=== PATIENT | female | born 1945 | race Caucasian/White ===

== ENCOUNTER 2018-01-29 20:10 | Emergency (ER) | payer MEDICARE, BC, SELFPAY ==
[2018-01-29 20:14] VITALS: BP 135/79; PULSE 78; RESP 18; TEMP 36.1; O2SAT 100; BMI 18.3
[2018-01-29] MEDS: PHENAZOPYRIDINE 100 MG TABLET 200 MG PO (20:31)
[2018-01-29 21:57] LABS: Bacteria Urine Few (2-10); RBC Urine 1-5/HPF (0-5/HPF); WBC Urine 30-100/HPF (0-5/HPF)
[2018-01-29 21:58] LABS: Culture Indicated Urine Specimen Cultured
[2018-01-29 23:18] VITALS: BP 102/53; PULSE 67; RESP 14; O2SAT 97
[2018-01-30] MEDS: cephALEXin 250 MG PREPACK 1 BOTTLE MISC (00:25)
[2018-01-30 00:27] VITALS: BP 115/63; PULSE 69; RESP 18; TEMP 36.9; O2SAT 99
--- NOTE | 2018-01-30 06:42 | ED_ITS ---
HPI - Female Genitourinary General Chief complaint: Urogenital-Female Stated complaint: BLEEDING,THINKS UTI Time Seen by Provider: 01/29/18 22:30 Source: patient Mode of arrival: ambulatory Limitations: no limitations History of Present Illness HPI Narrative: 73-year-old female with history of UTI presents with her in the chief complaint of dysuria, frequency and urgency along with hematuria over the past few days. She does have minimal back pain but denies any fever, chills nor nausea or vomiting. MD Complaint: dysuria and UTI Onset (ago): day(s) Female Urogenital Radiation: Suprapubic Severity: mild Quality: Aching Duration: constant Relieving factors: none Exacerbating factors: none Urinary symptoms: Difficulty Urinating, Dysuria, Flank Pain, Foul Smelling Urine , Frequency, Hematuria and Urgency Related Data Previous Rx's Medication Instructions Recorded cephalexin [Keflex] 500 mg PO QID 10 Days #40 cap 01/30/18 Allergies Allergy/AdvReac Type Severity Reaction Status Date / Time Iodinated Contrast- Oral and Allergy Intermediate Verified 01/29/18 20:26 IV Dye Review of Systems Review of Systems All systems reviewed & are unremarkable except as noted in HPI and below Constitutional Denies chills, Denies fever(s), Denies lethargy and Denies weakness Eyes Denies change in vision, Denies eye discharge, Denies irritation and Denies loss of vision ENT Ears, Nose, Mouth, and Throat: Denies change in voice, Denies neck pain and Denies sore throat Cardiovascular Denies chest pain, Denies irregular heart rhythm, Denies lightheadedness, Denies palpitations, Denies dyspnea, Denies dyspnea on exertion and Denies orthopnea Respiratory Denies cough, Denies dyspnea, Denies dyspnea on exertion and Denies wheezing Gastrointestinal Gastrointestinal: Denies abdominal pain, Denies change in bowel habits, Denies diarrhea, Denies nausea and Denies vomiting Genitourinary Reports hematuria, Reports urinary frequency, Denies flank pain, Denies urinary incontinence and Reports urinary urgency Musculoskeletal Reports back pain and Denies neck pain Integumentary/Breasts Denies pruritus, Denies erythema, Denies rash and Denies wounds Neurologic Denies confusion, Denies loss of vision and Denies weakness Psychiatric Denies anxiety, Denies confusion, Denies depression, Denies homicidal ideation and Denies suicidal ideation Endocrine Denies palpitations Hematologic/Lymphatic Denies easy bruising Allergic/Immunologic Denies wheezing PFSH Social History Smoking Status: Current every day smoker Exam Narrative Exam Narrative: GEN: AOx3 and in mild distress EYES: Pupils are equal, round, and reactive to light and accommodation. Extraoccular muscles are intact bilaterally. There is no subconjunctival hemorrhage or exudate. CHEST: Lungs are clear to auscultation bilaterally and free of wheezes, rales, or rhonchi. Heart rate is regular rhythm, there are no murmurs, clicks, rubs, or gallops. There is no chest wall tenderness. ABD: Abdomen is soft and mildly tender in the suprapubic region. There is no guarding or rebound. Bowel sounds are normal in all 4 quadrants. There is no mass or organomegaly. EXT: Full painless ROM of all extremities with no loss of sensation or strength. SKIN: Warm, pink, and dry. No erythema or rash BACK: Mild tenderness to palpation over the left flank Initial Vital Signs Initial Vital Signs: Vital Signs Temperature 97.0 F L 01/29/18 20:14 Pulse Rate 78 01/29/18 20:14 Respiratory Rate 18 01/29/18 20:14 Blood Pressure 135/79 01/29/18 20:14 Pulse Oximetry 100 01/29/18 20:14 Course Orders Ordered: Discontinued Medications Cefazolin Sodium (Keflex) 1 bottle MISC SEEINSTR ONE Stop: 01/30/18 00:17 Last Admin: 01/30/18 00:25 Dose: 1 prepack Phenazopyridine HCl (Pyridium) 200 mg PO NOW ONE Stop: 01/29/18 20:30 Last Admin: 01/29/18 20:31 Dose: 200 mg Vital Signs - 8 hr 01/29/18 23:18 01/30/18 00:27 Temperature 98.4 F Pulse Rate 67 69 Respiratory Rate 14 18 Blood Pressure [Left Arm] 102/53 L 115/63 Pulse Oximetry 97 99 MDM - Female Genitourinary Lab Data Lab Results 01/29/18 Range/Units 20:35 Urine RBC 1-5/hpf (0-5/HPF) Urine WBC 30-100/hpf H (0-5/HPF) Urine Bacteria Few (2-10) H (None) Ur Culture Indicated? Specimen cultured Micro UA Comment Not Reportable Urine Dip Bedside Urine Glucose Negative Bedside Urine Bilirubin - Negative Bedside Urine Ketone - Negative Urine Specific [place] 1.010 Bedside Urine Occult Blood + Bedside Urine pH 6.0 Bedside Urine Protein +/- 15 Bedside Urine Urobilinogen - Negative Bedside Urine Nitrite - Negative Bedside Urine Leukocytes +++ 500 Esterase Discharge Plan Departure Patient Disposition: Home Clinical Impression: Urinary tract infection Discharge Date/Time: 01/30/18 00:37 Interventions: ED Discharge Assessment Last Done: 01/30/18 00:36 Instructions: DI for Kidney Infection Activity Restrictions/Additional Instructions: *You have been diagnosed with [ acute pyelonephritis ] *What to do: *Take medications as directed *Follow up with your primary care provider in 2-3 days, call for an appointment. Let them know you were seen in the Emergency Department and that we ask that you be seen in follow up *Return to ER if you should have any new, worsening or concerning symptoms Prescriptions: New cephalexin [Keflex] 500 mg capsule 500 mg PO QID 10 Days Qty: 40 RF: 0
== END 2018-01-30 00:37 | disposition home or self-care (01) ==
PROVIDERS: Emergency Provider Emergency Medicine
DX: N39.0 Urinary tract infection, site not specified (principal)
CPT/HCPCS: 81003; 81015; 87077; 87086; 87186; 99282; 99283